=== PATIENT | female | born 1960 | race Caucasian/White ===

== ENCOUNTER 2021-02-07 12:38 | Inpatient (IN) ==
--- NOTE | 2021-02-07 13:02 | Emergency Department Note ---
SOB HPI General Chief Complaint: Shortness of Breath/Dyspnea Stated Complaint: SOB x1.5 weeks Time Seen by Provider: 02/07/21 12:42 Source: patient Mode of arrival: ambulatory Limitations: no limitations History of Present Illness HPI Narrative: Narrative: 60 yo F w/ h/o DM2 p/w SOB. She reports SOB which is constant, worsened w/ exertion, for about 1.5 weeks. Along w/ this, she has had a productive cough w/ yellowish sputum, fever, chills, malaise, body aches, and loss of sense of taste and smell. She reports that she is unvaccinated against COVID and hates wearing masks. She denies a h/o COPD but is a smoker. She has never had similar Sx. She also reports chronic anemia, and denies any blood in the stool. Related Data Home Medications Medication Instructions Recorded Confirmed insulin glargine [Lantus U-100 20 unit SUBCUT QDAY 02/07/21 02/07/21 Insulin] lisinopril 30 mg PO QDAY 02/07/21 02/07/21 metformin 1,000 mg PO BID 02/07/21 02/07/21 Allergies Allergy/AdvReac Type Severity Reaction Status Date / Time Steroids Allergy Unknown Unknown Uncoded 02/07/21 12:41 Review of Systems ROS ROS Narrative: Narrative: All systems ED: reviewed and negative except as stated. [facility] Narrative Patient History Narrative: Narrative: DM2, ongoing tobacco abuse Medical/Surgical/Family History All Active Problems (Updated 02/07/21 @ 16:43 by Norman Mohamud MD) Thrombocytopenia (Acute) T2DM (type 2 diabetes mellitus) (Acute) Essential hypertension (Acute) Hypochromic microcytic anemia (Acute) Acute dyspnea (Acute) Bilateral pneumonia (Acute) Pneumonia due to 2019 novel coronavirus (Acute) Anemia (Acute) Social History Smoking Status: Current every day smoker Exam Narrative Narrative: Narrative: General Limitations: no limitations General appearance: Present alert and in no apparent distress Head Head: Present atraumatic and normocephalic ENT ENT: Present normal oropharynx and mucous membranes moist Chest Chest: Present normal inspection and symmetric chest wall rise Respiratory Respiratory: Present normal lung sounds bilaterally; Absent respiratory distress, rales/crackles, wheezes and stridor Cardiovascular Cardiovascular: Present regular rate, normal rhythm, +S1, +S2 and other (2+ B/L radial pulses); Absent systolic murmur and diastolic murmur Adbominal Abdominal: Present soft and normal bowel sounds; Absent distention and tendernes s Rectal Rectal: Present normal inspection, normal rectal tone, heme (-) stool and other (photonics engineering technologist present as russian teacher) Extremities Extremities: Absent pedal edema Neurological Neurological: Present alert and oriented X3 Psychiatric Psychiatric: Present normal affect Skin Skin: Present warm (WNL) and dry Course Vital Signs Vital signs: Vital Signs Temperature 98.2 F 02/07/21 12:41 Pulse Rate 98 H 02/07/21 12:41 Respiratory Rate 20 02/07/21 12:41 Blood Pressure 123/95 02/07/21 12:41 Pulse Oximetry (%) 87 L 02/07/21 12:41 Temperature 98.2 F 02/07/21 12:41 Pulse Rate 94 H 02/07/21 17:01 Respiratory Rate 20 02/07/21 12:41 Blood Pressure 136/68 02/07/21 17:01 Pulse Oximetry (%) 90 02/07/21 17:01 MDM MDM Narrative Medical decision making narrative: Narrative: 60 yo F w/ h/o DM2 p/w SOB, hypoxia. DDx - COVID19, PE, PNA, sepsis, anemia, GI bleed Pt presented in NAD, w/ no increased WOB, but w/ SaO2 87% on RA. She was immediately started on 2L NC by nurse staff community health w/ good effect, SaO2 improving to the 90s. She had no accompanying hypotension, tachycardia, and no respiratory distress. I evaluated her and she was clinically stable. My strong suspicion based on Hx and PE was for COVID19. The CXR showed B/L infiltrates that were also c/w COVID19 by my own and radiologists reads. While the rapid test was negative, I felt that this was very likely a false negative and Tx'd w/ dexamethasone regardless. PE was clinically unlikely w/ no risk factors and w/ CXR showing B/L infiltrates that better explained her presentation. The lack of sudden worsening and the response to NC also fit more w/ COVID than PE. Bacterial PNA was likewise unlikely based on the infiltrate appearance, and the presence of happy hypoxia. I did not see evidence of underlying COPD w/ no wheezing present. CHF was a concern, especially high output CHF. Her Hgb was 4.9. However, the CXR showed no cardiomegaly, she had no peripheral edema, and her CXR findings were more c/w infiltrate than CHF pulmonary edema. Clinically she was not septic. Anemia was present. The etiology was unclear. She denied seeing any BRBPR or melanotic stools and hemoccult here was negative. Given the degree of anemia, this was clearly a chronic issue. I discussed R/B/A w/ pt and she was agreeable to transfusion, which I ordered. Overall her presentation was c/w COVID19 PNA and chronic anemia. She was graciously accepted for admission by the hospitalist. Lab Data Lab results reviewed: Yes I reviewed the patient's lab results. Result diagrams: 02/07/21 13:39 02/07/21 13:39 Labs: Lab Results 02/07/21 02/07/21 02/07/21 Range/Units 13:39 13:39 13:39 WBC 5.1 (4.5-11.0) K/mcL RBC 2.99 L (3.59-5.38) M/mcL Hgb 4.9 L* (11.2-15.7) g/dL Hct 18.2 L* (34.1-44.9) % MCV 60.9 L (80.0-100.0) fL MCH 16.4 L (26.0-34.0) pg MCHC 26.9 L (31.0-36.0) g/dL RDW 19.5 H (11.5-14.5) % Plt Count 108 L (140-440) K/mcL MPV 9.1 (7.4-10.4) fL Neut % (Auto) 76.5 (38.0-78.0) % Lymph % (Auto) 15.4 L (15.5-49.0) % [place] % (Auto) 7.9 (1.0-12.0) % Eos % (Auto) 0 (0.0-7.0) % Baso % (Auto) 0.2 (0.0-2.0) % Lymph # (Auto) 0.78 L (1.50-4.80) K/mcL [place] # (Auto) 0.40 (0.10-0.90) K/mcL Eos # (Auto) 0 (0.00-0.70) K/mcL Baso # (Auto) 0.01 (0.00-0.30) K/mcL Absolute Neutrophils 3.86 (1.80-8.00) K/mcL VBG Lactic Acid 1.3 (0.5-2.0) mmol/L Sodium 137 (133-145) mmol/L Potassium 3.4 (3.3-5.1) mmol/L Chloride 101 (96-108) mmol/L Carbon Dioxide 21 L (22-30) mmol/L Anion Gap 15.0 (8.0-16.0) BUN 9 (8-23) mg/dL Creatinine 0.7 (0.6-1.1) mg/dL GFR Calculation 93 Glucose 133 H (70-105) mg/dL Calcium 8.9 (8.6-10.4) mg/dL Total Bilirubin 0.4 (0.1-1.0) mg/dL AST 33 H (<32) U/L ALT 15 (<40) U/L Alkaline Phosphatase 109 (39-117) U/L Total Creatine Kinase 34 (24-170) U/L CK-MB (CK-2) 2.5 (<3.7) ng/mL Troponin T < 0.01 (<0.03) ng/mL Total Protein 6.7 (5.9-8.4) gm/dL Albumin 3.5 (3.2-5.2) gm/dL Globulin 3.2 (2.2-3.7) gm/dL Albumin/Globulin Ratio 1.1 (1.0-2.3) ED POC Tests ED POC Tests: VIELKA - SARS Antigen Negative CC TIME Critical Care Time Total Critical Care Time: 35 Attestation: The very real possibility of disability or existed without emergent intervention. Organ systems at risk included ROD HANGER, CVS, pulmonary. Interventions included supplemental O2, and blood transfusion. No procedures were required. Discharge Plan Patient/Caregiver Discharge Instructions Pt seen by BARBER SHOP MANAGER/PA only: No Clinical Impression: Acute dyspnea, Bilateral pneumonia, Pneumonia due to 2019 novel coronavirus, Anemia Patient Disposition: Xfer As Inpt ([facility]) Condition: Fair Prescriptions: No Action Lantus U-100 Insulin 100 unit/mL Solution 20 unit SUBCUT QDAY RF: 0 metformin 1,000 mg Tablet 1,000 mg PO BID RF: 0 lisinopril 30 mg Tablet 30 mg PO QDAY RF: 0
--- NOTE | 2021-02-07 13:47 | XRay Report ---
INDICATION: chest pain TECHNIQUE: AP portable upright chest x-ray COMPARISON: None FINDINGS: Lungs:There are bilateral pulmonary parenchymal infiltrates with peripheral predominance. Appearance is consistent with covid pneumonia. No focal pulmonary mass. Heart, vascular:No significant cardiomegaly. Pulmonary vascularity is normal. No pulmonary edema or pulmonary congestion Mediastinum, shorty:No mediastinal widening. No hilar mass Pleura:No pleural fluid. No pleural-based mass or calcification Skeletal:Negative. IMPRESSION: Bilateral pulmonary parenchymal infiltrates consistent with covid pneumonia Interpreted and Authenticated by: Raul Pugh 02/07/21
[2021-02-07 14:28] LABS: Basophils # (Auto) 0.01 K/mcL (0.00-0.30); Basophils % (Auto) 0.2 % (0.0-2.0); Eosinophils # (Auto) 0 K/mcL (0.00-0.70); Eosinophils % (Auto) 0 % (0.0-7.0); Hematocrit 18.2 % (34.1-44.9); Hemoglobin 4.9 g/dL (11.2-15.7); Lymphocytes # (Auto) 0.78 K/mcL (1.50-4.80); Lymphocytes % (Auto) 15.4 % (15.5-49.0); Mean Cell Volume 60.9 fL (80.0-100.0); Mean Corpuscular HGB Conc 26.9 g/dL (31.0-36.0); Mean Platelet Volume 9.1 fL (7.4-10.4); Monocytes % (Auto) 7.9 % (1.0-12.0); Neutrophils % (Auto) 76.5 % (38.0-78.0); Platelet Count 108 K/mcL (140-440); RBC 2.99 M/mcL (3.59-5.38); Red Cell Distribution Width 19.5 % (11.5-14.5); WBC 5.1 K/mcL (4.5-11.0)
[2021-02-07 14:53] LABS: ALT/SGPT 15 U/L (<40); AST/SGOT 33 U/L (<32); Albumin 3.5 gm/dL (3.2-5.2); Albumin/Globulin Ratio 1.1 (1.0-2.3); Alkaline Phosphatase 109 U/L (39-117); Bilirubin,Total 0.4 mg/dL (0.1-1.0); Blood Urea Nitrogen 9 mg/dL (8-23); Calcium 8.9 mg/dL (8.6-10.4); Carbon Dioxide 21 mmol/L (22-30); Chloride 101 mmol/L (96-108); Creatine Kinase 34 U/L (24-170); Creatine Kinase MB 2.5 ng/mL (<3.7); Globulin 3.2 gm/dL (2.2-3.7); Glomerular Filtration Rate 93; Glucose 133 mg/dL (70-105)
[2021-02-07] MEDS ORDERED: DEXAMETHASONE 10 MG/ML VIAL IV ONE (15:38)
[2021-02-07] MEDS ORDERED: 0.9 % SODIUM CHLORIDE 250 ML IV SCH (15:45)
[2021-02-07] MEDS ORDERED: hydrALAZINE 20 MG/ML VIAL IV PRN ×2 (16:38→18:07)
--- NOTE | 2021-02-07 16:38 | Internal Med History&Physical ---
HPI History of Present Illness Patient information: Note initiated : 02/07/21 at 4:37 pm Service Date, if different from initiated Date: [] Patient: Wanda Gonzalez a 60 y/o F admitted on for SOB x1.5 weeks. Chief Complaint: [CoVID pneumonia and anemia] History of present illness: Ms. Gonzalez is a 60 year old F history of essential hypertension and type 2 diabetes mellitus, presenting with 1 week history of shortness of breath, productive cough with green sputum productions, shaking chills, decreased appetite, and general body weakness. There was no prior similar episode. Patient denies any sick contact or recent travel. Patient is not vaccinated against Covid pneumonia. Over the past week, she is experiencing shortness of breath, productive cough with green sputum productions, shaking chills, decreased appetite, and general body weakness. She is also having some nausea but denies any vomiting. She denies any muscle aches. Vital signs at ED presentation significant for oxygen desaturating in the 80s on room air. Rest of the vital signs within normal limits. Labs significant for lack of leukocytosis with WBC 5.1. Hemoglobin and hematocrit 4.9 and 18.2, respectively. Platelet count 108. Serum lactic acid 1.3. Initial [place] Covid screening test negative. Chest x-ray showing bilateral pulmonary infiltrates typical for Covid pneumonia. Constitutional Constitutional: Present chills and weakness; Absent excessive sweating, fatigue and fever(s) Additional comments: decreased appetite EENT Eyes: Absent blurry vision, change in vision, loss of vision and other visual disturbances Ears: Absent decreased hearing and tinnitus Nose, mouth and throat: Absent abnormal hearing, dry mouth, headache(s), nasal congestion and sore throat Cardiovascular Cardiovascular: Absent chest pain, chest pain at rest, edema, irregular heart rhythm and palpatations Respiratory Respiratory: Present cough and excessive phlegm production; Absent dyspnea and wheezing Gastrointestinal Gastrointestinal: Present nausea; Absent abdominal pain, constipation, diarrhea and vomiting Musculoskeletal Musculoskeletal: Absent back pain, deformity, limited range of motion, muscle c ramps, muscle weakness and numbness Integumentary Integumentary: Absent lesions, rash and wounds Neurological Neurological: Absent focal weakness, headache(s) and numbness Psychiatric Psychiatric: Absent anxiety, depression and hallucinations PFSH PFSH All Active Problems (Updated 02/07/21 @ 16:43 by Norman Mohamud MD) Thrombocytopenia (Acute) T2DM (type 2 diabetes mellitus) (Acute) Essential hypertension (Acute) Hypochromic microcytic anemia (Acute) Acute dyspnea (Acute) Bilateral pneumonia (Acute) Pneumonia due to 2019 novel coronavirus (Acute) Anemia (Acute) MEDS/ALLERGIES Home Medications and Allergies Allergies Allergy/AdvReac Type Severity Reaction Status Date / Time Steroids Allergy Unknown Unknown Uncoded 02/07/21 12:41 EXAM Constitutional Vitals: Temp Pulse Resp BP Pulse Ox 36.8 C 99 H 20 138/98 92 02/07/21 12:41 02/07/21 16:21 02/07/21 12:41 02/07/21 16:21 02/07/21 16:21 General appearance: cooperative and no acute distress Head Head exam: Present atraumatic and normocephalic Eye Eye exam: Present EOMI and PERRL ENT ENT exam: Present mucous membranes moist, normal exam and normal external ear exam Additional comments: oxygen mask in place Neck Neck exam: Present normal inspection; Absent lymphadenopathy, tenderness and thyromegaly Respiratory Respiratory exam: Present rhonchi; Absent accessory muscle use, respiratory distress and wheezes Cardiovascular Cardiovascular exam: Present normal rate and rhythm; Absent JVD GI/Abdominal GI/Abdominal exam: Present normal bowel sounds and soft; Absent organomegaly and tenderness Extremities Exam Extremities exam: Present full ROM, normal capillary refill and normal inspection; Absent tenderness Neurological Exam Neurological exam: Present alert, CN II-XII intact and oriented X3; Absent motor sensory deficit Psychiatric Psychiatric exam: Present normal affect and normal mood; Absent anxious and depressed Skin Skin exam: Present dry and intact DATA Data Completed and Pending Labs: Labs from last 24 hours 02/07/21 02/07/21 02/07/21 13:39 13:39 13:39 WBC 5.1 RBC 2.99 L Hgb 4.9 L* Hct 18.2 L* MCV 60.9 L MCH 16.4 L MCHC 26.9 L RDW 19.5 H Plt Count 108 L MPV 9.1 Neut % (Auto) 76.5 Lymph % (Auto) 15.4 L [place] % (Auto) 7.9 Eos % (Auto) 0 Baso % (Auto) 0.2 Lymph # (Auto) 0.78 L [place] # (Auto) 0.40 Eos # (Auto) 0 Baso # (Auto) 0.01 Absolute Neutrophils 3.86 VBG Lactic Acid 1.3 Sodium 137 Potassium 3.4 Chloride 101 Carbon Dioxide 21 L Anion Gap 15.0 BUN 9 Creatinine 0.7 GFR Calculation 93 Glucose 133 H Calcium 8.9 Total Bilirubin 0.4 AST 33 H ALT 15 Alkaline Phosphatase 109 Total Creatine Kinase 34 CK-MB (CK-2) 2.5 Troponin T < 0.01 Total Protein 6.7 Albumin 3.5 Globulin 3.2 Albumin/Globulin Ratio 1.1 A/P Assessment and plan (1) Pneumonia due to 2019 novel coronavirus: Status: Acute (2) Hypochromic microcytic anemia: Status: Acute (3) Essential hypertension: Status: Acute (4) T2DM (type 2 diabetes mellitus): Status: Acute (5) Thrombocytopenia: Status: Acute Narrative A/P Narrative: Assessment and plan: 1. Acute respiratory failure with hypoxia suspecting Covid pneumonia: Admit to inpatient MedSurg Isolation protocol: Airborne and contact Pending Covid PCR confirmatory test Dexamethasone daily Would initiate remdesivir once Covid is confirmed by PCR Lovenox Tylenol as needed fever DuoNeb nebulizer as needed wheezing Serial lactic exit Inflammatory markers CBC with auto differential in the morning to trend WBC Proning 16 hours/day as tolerated #2 type 2 diabetes mellitus: Hemoglobin A1c Hold Metformin Continue insulin Lantus 20 units adjust Low-dose correctional scale insulin AC at bedtime Accu-Chek AC at bedtime Hypoglycemia protocol Diabetic diet #3 essential hypertension: Patient is currently normotensive Continue home regimen of oral antihypertensive 4. Hypochromic microcytic anemia with thrombocytopenia: Transfuse 3 units of PRBC Repeat CBC with auto differential in the morning to trend H&H Iron panel Vitamin B12 level Folate level GI prophylaxis: Not currently indicated DVT prophylaxis: Lovenox CODE STATUS: Full code Prognosis: Guarded Dispositions: Inpatient MedSurg telemetry Time Spent With Patient Time: Total time spent is greater than 50% in coordination of care (as documented) at patient's floor/unit and/or counseling patient: Total time spent with greater than 50% in coordination of care (as documented) at patient's floor/unit and/or counseling patient:: Greater than 35 minutes
[2021-02-07] MEDS ORDERED: DEXTROSE 31 GM ORAL.SUSP PO PRN (18:07)
[2021-02-07] MEDS ORDERED: DEXTROSE 50% 50 ML VIAL IV PRN (18:07)
[2021-02-07] MEDS ORDERED: IPRATROPIUM/ALBUTEROL 3 ML AMPUL.NEB NEB PRN (18:07)
[2021-02-07] MEDS ORDERED: ONDANSETRON 4 MG/2 ML VIAL IV PRN (18:07)
[2021-02-07] MEDS ORDERED: traZODone HCL 50 MG TABLET PO PRN (18:07)
[2021-02-07] MEDS: 0.9 % SODIUM CHLORIDE 10 ML SYRINGE IV SCH (20:06)
[2021-02-07] MEDS: DOCUSATE SODIUM 100 MG CAPSULE PO SCH (20:06)
[2021-02-07] MEDS: SENNOSIDES 1 TABLET PO SCH (20:06)
[2021-02-07] MEDS: INSULIN LISPRO 1 UNIT/0.01 ML UNIT SQ SCH ×2 (20:07→22:28)
[2021-02-07 21:10] LABS: Ferritin 56.7 ng/mL (30.0-400.0)
[2021-02-07 22:14] LABS: INR 1.1 (0.9-1.1); Prothrombin Time 14.5 sec (11.9-14.5)
[2021-02-07 23:31] LABS: Iron 10 ug/dL (37-145); Lactate Dehydrogenase 302 U/L (135-225); TIBC Calculation 319 ug/dl (228-428); Transferrin % Saturation 3 % (15-50)
[2021-02-07 23:51] LABS: Estimated Average Glucose(eAG) 151 mg/dL; Hemoglobin A1C 6.9 % Hgb (4.0-6.0)
[2021-02-08] MEDS: 0.9 % SODIUM CHLORIDE 10 ML SYRINGE IV SCH ×3 (02:55→22:09)
[2021-02-08 07:55] LABS: ALT/SGPT 16 U/L (<40); AST/SGOT 29 U/L (<32); Albumin 3.4 gm/dL (3.2-5.2); Alkaline Phosphatase 103 U/L (39-117); Bilirubin,Total 0.5 mg/dL (0.1-1.0); Blood Urea Nitrogen 9 mg/dL (8-23); Carbon Dioxide 21 mmol/L (22-30); Chloride 102 mmol/L (96-108); Globulin 3.3 gm/dL (2.2-3.7); Glomerular Filtration Rate 93; Glucose 173 mg/dL (70-105)
[2021-02-08] MEDS: ENOXAPARIN 40 MG/0.4 ML SYRINGE SQ SCH (08:21)
[2021-02-08] MEDS: DOCUSATE SODIUM 100 MG CAPSULE PO SCH ×3 (08:22→22:09)
[2021-02-08] MEDS: INSULIN LISPRO 1 UNIT/0.01 ML UNIT SQ SCH ×4 (08:22→22:08)
[2021-02-08] MEDS: DEXAMETHASONE 4 MG TABLET PO SCH (08:22)
[2021-02-08] MEDS: LISINOPRIL 10 MG TABLET PO SCH (08:22)
[2021-02-08] MEDS: INSULIN GLARGINE, HUMAN 1 UNIT/0.01 ML SQ SCH (08:23)
[2021-02-08] MEDS ORDERED: INSULIN GLARGINE, HUMAN 1 UNIT/0.01 ML SQ SCH (09:00)
[2021-02-08] MEDS ORDERED: LISINOPRIL 10 MG TABLET PO SCH (09:00)
[2021-02-08] MEDS: guaiFENesin/DEXTROMETHORPHAN ORAL SOL PO PRN ×2 (09:33→22:09)
[2021-02-08 10:23] LABS: Basophils # (Auto) 0.01 K/mcL (0.00-0.30); Basophils % (Auto) 0.3 % (0.0-2.0); Eosinophils # (Auto) 0 K/mcL (0.00-0.70); Eosinophils % (Auto) 0 % (0.0-7.0); Hematocrit 29.1 % (34.1-44.9); Lymphocytes # (Auto) 0.72 K/mcL (1.50-4.80); Lymphocytes % (Auto) 24.7 % (15.5-49.0); Mean Cell Volume 69.3 fL (80.0-100.0); Mean Corpuscular HGB Conc 30.9 g/dL (31.0-36.0); Mean Platelet Volume 9.3 fL (7.4-10.4); Monocytes # (Auto) 0.34 K/mcL (0.10-0.90); Monocytes % (Auto) 11.6 % (1.0-12.0); Neutrophils % (Auto) 63.4 % (38.0-78.0); Platelet Count 108 K/mcL (140-440); Red Cell Distribution Width 27.6 % (11.5-14.5); WBC 2.9 K/mcL (4.5-11.0)
--- NOTE | 2021-02-08 11:55 | Internal Med Progress Note ---
SUBJECTIVE Subjective Patient information: Note initiated : 02/08/21 at 11:52 am Service Date, if different from initiated Date: [] Patient: Wanda Gonzalez 60 y/o F admitted on 02/07/21 for SOB x1.5 weeks. Chief Complaint: [CoVID pneumonia vs atypical pneumonia] Interval history: History of present illness: Ms. Gonzalez is a 60 year old F history of essential hypertension and type 2 diabetes mellitus, presenting with 1 week history of shortness of breath, productive cough with green sputum productions, shaking chills, decreased appetite, and general body weakness. There was no prior similar episode. Patient denies any sick contact or recent travel. Patient is not vaccinated against Covid pneumonia. Over the past week, she is experiencing shortness of breath, productive cough with green sputum productions, shaking chills, decreased appetite, and general body weakness. She is also having some nausea but denies any vomiting. She denies any muscle aches. Vital signs at ED presentation significant for oxygen desaturating in the 80s on room air. Rest of the vital signs within normal limits. Labs significant for lack of leukocytosis with WBC 5.1. Hemoglobin and hematocrit 4.9 and 18.2, respectively. Platelet count 108. Serum lactic acid 1.3. Initial [place] Covid screening test negative. Chest x-ray showing bilateral pulmonary infiltrates typical for Covid pneumonia. 02/08: [place] negative. Aeries negative. [place] pending. On 3L/min oxygen. Afebrile overnight. WBC 2.9. s/p 3 unit pRBC transfusion. Hemoglobin 4.9-->9.0. Improving SOB. Productive cough with yellow sputum. Denies chest pain. c/o chills, denies fever or sweating. c/o general body weakness. Constitutional Vitals: Vital Signs Temp Pulse Resp BP Pulse Ox 36.6 C 79 16 121/74 95 02/08/21 11:39 02/08/21 11:39 02/08/21 11:39 02/08/21 11:39 02/08/21 11:39 Period Temp Pulse Resp BP Sys/Garcia Pulse Ox Last 24 Hr 36.3 C-37.1 C 71-99 14-20 108-154/52-109 87-100 Intake and Output 02/07/21 02/08/21 02/08/21 21:59 05:59 13:59 Intake Total 325 Output Total 200 500 Balance 325 -200 -500 Weight 70.76 kg Intake & Output: Intake & Output 02/07/21 02/08/21 02/08/21 21:59 05:59 13:59 Intake Total 325 Output Total 200 500 Balance 325 -200 -500 Weight 70.76 kg Intake: Blood Product 325 Output: Void Amount 200 500 Other: Urine Appearance Clear Urine Color Bright Yellow Dark Yellow General appearance: cooperative and no acute distress Head Head exam: Present atraumatic and normocephalic Eye Eye exam: Present EOMI and PERRL ENT ENT exam: Present mucous membranes moist, normal exam and normal external ear exam Additional comments: nasal cannula in place Neck Neck exam: Present normal inspection; Absent lymphadenopathy, tenderness and thyromegaly Respiratory Respiratory exam: Present rhonchi; Absent accessory muscle use, respiratory di stress and wheezes Cardiovascular Cardiovascular exam: Present normal rate and rhythm; Absent JVD GI/Abdominal GI/Abdominal exam: Present normal bowel sounds and soft; Absent organomegaly and tenderness Extremities Exam Extremities exam: Present full ROM, normal capillary refill and normal inspection; Absent tenderness Neurological Exam Neurological exam: Present alert, CN II-XII intact and oriented X3; Absent motor sensory deficit Psychiatric Psychiatric exam: Present normal affect and normal mood; Absent anxious and depressed Skin Skin exam: Present dry and intact OBJ DATA Labs CBC & Chem 7: 02/08/21 05:51 02/08/21 05:50 Labs: Abnormal Lab Results 02/08/21 02/08/21 02/07/21 05:51 05:50 21:16 WBC 2.9 L RBC Hgb 9.0 L Hct 29.1 L MCV 69.3 L MCH 21.4 L MCHC 30.9 L RDW 27.6 H Plt Count 108 L Lymph % (Auto) Lymph # (Auto) 0.72 L Fibrinogen 659 H D-Dimer 0.54 H Carbon Dioxide 21 L Glucose 173 H Hemoglobin A1c Iron Transferrin % Sat AST Lactate Dehydrogenase C-Reactive Protein Procalcitonin 02/07/21 02/07/21 02/07/21 13:39 13:39 13:39 WBC RBC Hgb Hct MCV MCH MCHC RDW Plt Count Lymph % (Auto) Lymph # (Auto) Fibrinogen D-Dimer Carbon Dioxide 21 L Glucose 133 H Hemoglobin A1c 6.9 H Iron 10 L Transferrin % Sat 3 L AST 33 H Lactate Dehydrogenase 302 H C-Reactive Protein 10.60 H Procalcitonin 0.27 H 02/07/21 13:39 WBC RBC 2.99 L Hgb 4.9 L* Hct 18.2 L* MCV 60.9 L MCH 16.4 L MCHC 26.9 L RDW 19.5 H Plt Count 108 L Lymph % (Auto) 15.4 L Lymph # (Auto) 0.78 L Fibrinogen D-Dimer Carbon Dioxide Glucose Hemoglobin A1c Iron Transferrin % Sat AST Lactate Dehydrogenase C-Reactive Protein Procalcitonin Meds: Medications Acetaminophen (Acetaminophen 325 Mg Tablet) 650 mg PO Q6HP PRN; Protocol PRN Reason: Per Pain Protocol/Fever > 101 Albuterol/Ipratropium (Ipratropium/Albuterol 3 Ml Ampul.Neb) 3 ml NEB Q4HRT PRN PRN Reason: Wheezing Dexamethasone (Dexamethasone 4 Mg Tablet) 6 mg PO DAILY [facility] Last Admin: 02/08/21 08:22 Dose: 6 mg Documented by: Dextrose (Dextrose 50% 50 Ml Vial) 0 ml IV UD PRN PRN Reason: Hypoglycemia Diagnostic Test (Pha) (Accu-Chek 1 Each Strip) 1 each FS ACHS [facility] Last Admin: 02/08/21 11:23 Dose: 1 each Documented by: Docusate Sodium (Docusate Sodium 100 Mg Capsule) 100 mg PO BID [facility] Last Admin: 02/08/21 08:30 Dose: Not Given Documented by: Enoxaparin Sodium (Enoxaparin 40 Mg/0.4 Ml Syringe) 40 mg SQ DAILY [facility] Last Admin: 02/08/21 08:21 Dose: 40 mg Documented by: Glucose (Dextrose 31 Gm Oral.Susp) 15 gm PO PRN PRN PRN Reason: Hypoglycemia Guaifenesin (Guaifenesin/Dextromethorphan Oral Evelyne) 10 ml PO Q4HP PRN PRN Reason: Cough Last Admin: 02/08/21 09:33 Dose: 10 ml Documented by: Hydralazine HCl (Hydralazine 20 Mg/Ml Vial) 10 mg IV Q4-6HP PRN PRN Reason: Hypertension Insulin Glargine (Insulin Glargine, Human 1 Unit/0.01 Ml) 20 unit SQ QDAY [facility] Last Admin: 02/08/21 08:23 Dose: 20 units Documented by: Insulin Human Lispro (Insulin Lispro 1 Unit/0.01 Ml Unit) 0 unit SQ ACHS [facility]; Protocol Last Admin: 02/08/21 11:29 Dose: 4 units Documented by: Lisinopril (Lisinopril 10 Mg Tablet) 30 mg PO DAILY [facility] Last Admin: 02/08/21 08:22 Dose: 30 mg Documented by: Ondansetron HCl (Ondansetron 4 Mg/2 Ml Vial) 4 mg IV Q6HP PRN PRN Reason: Nausea And Vomiting Senna (Sennosides 1 Tablet) 2 tab PO HS [facility] Last Admin: 02/07/21 20:06 Dose: Not Given Documented by: Sodium Chloride (0.9 % Sodium Chloride 10 Ml Syringe) 10 ml IV Q8 [facility] Last Admin: 02/08/21 02:55 Dose: 10 ml Documented by: Trazodone HCl (Trazodone Hcl 50 Mg Tablet) 25 mg PO HSP PRN PRN Reason: Insomnia A/P Assessment and plan (1) Pneumonia due to 2019 novel coronavirus: Status: Acute (2) Hypochromic microcytic anemia: Status: Acute (3) Essential hypertension: Status: Acute (4) T2DM (type 2 diabetes mellitus): Status: Acute (5) Thrombocytopenia: Status: Acute Narrative A/P Narrative: Assessment and plan: 1. Acute respiratory failure with hypoxia suspecting Covid pneumonia: Stays in inpatient MedSurg Isolation protocol: Airborne and contact [place] negative Aeries negative [place] pending If [place] positive, will start remdesivir If [place] negative, will treat as atypical pneumonia with Rocephin and Zithromax Dexamethasone daily Lovenox Tylenol as needed fever DuoNeb nebulizer as needed wheezing Serial lactic acid Inflammatory markers CBC with auto differential in the morning to trend WBC Proning 16 hours/day as tolerated #2 type 2 diabetes mellitus: Hemoglobin A1c Hold Metformin Continue insulin Lantus 20 units adjust Low-dose correctional scale insulin AC at bedtime Accu-Chek AC at bedtime Hypoglycemia protocol Diabetic diet #3 essential hypertension: Patient is currently normotensive Continue home regimen of oral antihypertensive 4. Hypochromic microcytic anemia with thrombocytopenia: Transfuse 3 units of PRBC Repeat CBC with auto differential in the morning to trend H&H Iron panel-->suggestive of iron deficiency. Will start oral iron supplement Vitamin B12 level within normal limits Folate level within normal limits GI prophylaxis: Not currently indicated DVT prophylaxis: Lovenox CODE STATUS: Full code Prognosis: Guarded Dispositions: Inpatient MedSurg telemetry Time Spent With Patient Time: Total time spent is greater than 50% in coordination of care (as docu mented) at patient's floor/unit and/or counseling patient: Total time spent with greater than 50% in coordination of care (as documented) at patient's floor/unit and/or counseling patient:: Greater than 35 minutes QUALITY VTE Deep Vein Thrombosis/Pulmonary Embolism Present on Admission: No
[2021-02-08] MEDS ORDERED: REMDESIVIR 200 MG in 0.9 % SODIUM CHLORIDE 250 ML IV ONE (13:30)
[2021-02-08] MEDS: ACETAMINOPHEN 325 MG TABLET PO PRN ×2 (14:05→22:07)
[2021-02-08] MEDS: FERROUS SULFATE 325 MG TABLET PO SCH (17:16)
--- NOTE | 2021-02-08 18:34 | EKG ---
[facility] Test Date: 2021-02-07 Pat Name: eDe Gonzalez Department: ED Room: Gender: Female Pool Installer: [facility] : 1960 Requested By: Harlan Browning Order Number: [id number] Reading MD: Robin Paul Measurements Intervals [place] Rate: 95 P: 45 NE: 152 QRS: 39 QRSD: 100 T: 52 QT: 374 QTc: 470 Interpretive Statements Sinus rhythm Minimal ST depression, anterolateral leads Electronically Signed On 02-08-2021 18:34:21 PST by Robin Paul /store/[email or web address]/[id number]
[2021-02-08] MEDS: SENNOSIDES 1 TABLET PO SCH (22:09)
[2021-02-09] MEDS: FERROUS SULFATE 325 MG TABLET PO SCH ×2 (07:11→16:54)
[2021-02-09 07:12] LABS: Basophils # (Auto) 0.01 K/mcL (0.00-0.30); Basophils % (Auto) 0.1 % (0.0-2.0); Eosinophils # (Auto) 0 K/mcL (0.00-0.70); Eosinophils % (Auto) 0 % (0.0-7.0); Hematocrit 27.7 % (34.1-44.9); Hemoglobin 8.5 g/dL (11.2-15.7); Lymphocytes # (Auto) 1.08 K/mcL (1.50-4.80); Lymphocytes % (Auto) 12.5 % (15.5-49.0); Mean Cell Volume 68.7 fL (80.0-100.0); Mean Corpuscular HGB Conc 30.7 g/dL (31.0-36.0); Monocytes # (Auto) 0.46 K/mcL (0.10-0.90); Monocytes % (Auto) 5.3 % (1.0-12.0); Neutrophils % (Auto) 82.1 % (38.0-78.0); Platelet Count 117 K/mcL (140-440); RBC 4.03 M/mcL (3.59-5.38); Red Cell Distribution Width 27.4 % (11.5-14.5); WBC 8.7 K/mcL (4.5-11.0)
[2021-02-09 07:14] LABS: ALT/SGPT 40 U/L (<40); AST/SGOT 68 U/L (<32); Albumin 3.3 gm/dL (3.2-5.2); Alkaline Phosphatase 101 U/L (39-117); Bilirubin,Total 0.4 mg/dL (0.1-1.0); Blood Urea Nitrogen 18 mg/dL (8-23); Calcium 9.2 mg/dL (8.6-10.4); Carbon Dioxide 21 mmol/L (22-30); Chloride 103 mmol/L (96-108); Globulin 3.2 gm/dL (2.2-3.7); Glomerular Filtration Rate 93; Glucose 145 mg/dL (70-105)
[2021-02-09] MEDS: INSULIN GLARGINE, HUMAN 1 UNIT/0.01 ML SQ SCH (08:27)
[2021-02-09] MEDS: ACETAMINOPHEN 325 MG TABLET PO PRN ×2 (08:28→21:03)
[2021-02-09] MEDS: INSULIN LISPRO 1 UNIT/0.01 ML UNIT SQ SCH ×4 (08:28→21:04)
[2021-02-09] MEDS: LISINOPRIL 10 MG TABLET PO SCH (08:29)
[2021-02-09] MEDS: DEXAMETHASONE 4 MG TABLET PO SCH (08:29)
[2021-02-09] MEDS: guaiFENesin/DEXTROMETHORPHAN ORAL SOL PO PRN ×2 (08:30→21:05)
[2021-02-09] MEDS: ENOXAPARIN 40 MG/0.4 ML SYRINGE SQ SCH (08:31)
[2021-02-09] MEDS: DOCUSATE SODIUM 100 MG CAPSULE PO SCH ×2 (08:36→21:04)
[2021-02-09] MEDS: 0.9 % SODIUM CHLORIDE 10 ML SYRINGE IV SCH ×3 (09:02→21:04)
[2021-02-09] MEDS: REMDESIVIR 100 MG in 0.9 % SODIUM CHLORIDE 250 ML IV SCH (09:02)
[2021-02-09] MEDS ORDERED: DEXTROSE 50% 50 ML VIAL IV PRN (11:29)
[2021-02-09] MEDS ORDERED: DEXTROSE 31 GM ORAL.SUSP PO PRN (11:29)
--- NOTE | 2021-02-09 11:31 | Internal Med Progress Note ---
SUBJECTIVE Subjective Patient information: Note initiated : 02/09/21 at 11:30 am Service Date, if different from initiated Date: [] Patient: Wanda Gonzalez 60 y/o F admitted on 02/07/21 for SOB x1.5 weeks. Chief Complaint: [] Interval history: History of present illness: Ms. Gonzalez is a 60 year old F history of essential hypertension and type 2 diabetes mellitus, presenting with 1 week history of shortness of breath, productive cough with green sputum productions, shaking chills, decreased appetite, and general body weakness. There was no prior similar episode. Patient denies any sick contact or recent travel. Patient is not vaccinated against Covid pneumonia. Over the past week, she is experiencing shortness of breath, productive cough with green sputum productions, shaking chills, decreased appetite, and general body weakness. She is also having some nausea but denies any vomiting. She denies any muscle aches. Vital signs at ED presentation significant for oxygen desaturating in the 80s on room air. Rest of the vital signs within normal limits. Labs significant for lack of leukocytosis with WBC 5.1. Hemoglobin and hematocrit 4.9 and 18.2, respectively. Platelet count 108. Serum lactic acid 1.3. Initial Carolin Covid screening test negative. Chest x-ray showing bilateral pulmonary infiltrates typical for Covid pneumonia. 02/08: Carolin negative. Aeries negative. Mackay pending. On 3L/min oxygen. Afebrile overnight. WBC 2.9. s/p 3 unit pRBC transfusion. Hemoglobin 4.9-->9.0. Improving SOB. Productive cough with yellow sputum. Denies chest pain. c/o chills, denies fever or sweating. c/o general body weakness. 02/09: Mackay positive. Currently on 4L/min oxygen. Started on Remdesivir on 02/08. Afebrile overnight. H/H stable. Improving SOB. Productive cough with green sputum. Denies chest pain. c/o general body weakness. Denies fever, chills, or sweating. Constitutional Vitals: Vital Signs Temp Pulse Resp BP Pulse Ox 35.9 C L 90 20 139/46 94 02/09/21 11:20 02/09/21 11:20 02/09/21 11:20 02/09/21 11:20 02/09/21 11:20 Period Temp Pulse Resp BP Sys/Garcia Pulse Ox Last 24 Hr 35.9 C-36.9 C 67-90 16-20 92-145/41-80 91-96 Intake and Output 02/08/21 02/09/21 02/09/21 21:59 05:59 13:59 Intake Total 730 680 250 Output Total 100 Balance 630 680 250 Weight 72.121 kg Intake & Output: Intake & Output 02/08/21 02/09/21 02/09/21 21:59 05:59 13:59 Intake Total 730 680 250 Output Total 100 Balance 630 680 250 Weight 72.121 kg Intake: IV 250 250 Veklury 100 mg In Sodium 250 250 Chloride 0.9% 250 ml @ 500 mls/ hr IV Q24H [facility] Rx#:[id number] Oral 480 680 Output: Void Amount 100 Other: Urine Appearance Clear Urine Color Dark Yellow Bright Yellow Stool Size Moderate Stool Color Brown Stool Consistency Normal for Patient # Voids 1 1 # Bowel Movements 1 General appearance: cooperative and mild distress Head Head exam: Present atraumatic and normal inspection Eye Eye exam: Present normal appearance ENT ENT exam: Present mucous membranes moist, normal exam and normal external ear exam Additional comments: Nasal cannula in place Neck Neck exam: Present normal inspection Respiratory Respiratory exam: Present normal respiratory exam and rhonchi; Absent wheezes Cardiovascular Cardiovascular exam: Present normal rate and rhythm GI/Abdominal GI/Abdominal exam: Present normal bowel sounds Back Exam Back exam: Present normal inspection Neurological Exam Neurological exam: Present alert and oriented X3 Skin Skin exam: Present intact and warm OBJ DATA Labs CBC & Chem 7: 02/09/21 05:50 02/09/21 05:50 Labs: Abnormal Lab Results 02/09/21 02/09/21 02/08/21 05:50 05:50 05:51 WBC 2.9 L RBC Hgb 8.5 L 9.0 L Hct 27.7 L 29.1 L MCV 68.7 L 69.3 L MCH 21.1 L 21.4 L MCHC 30.7 L 30.9 L RDW 27.4 H 27.6 H Plt Count 117 L 108 L Neut % (Auto) 82.1 H Lymph % (Auto) 12.5 L Lymph # (Auto) 1.08 L 0.72 L Fibrinogen D-Dimer Carbon Dioxide 21 L Glucose 145 H Hemoglobin A1c Iron Transferrin % Sat AST 68 H ALT 40 H Lactate Dehydrogenase C-Reactive Protein Procalcitonin 02/08/21 02/07/21 02/07/21 05:50 21:16 13:39 WBC RBC Hgb Hct MCV MCH MCHC RDW Plt Count Neut % (Auto) Lymph % (Auto) Lymph # (Auto) Fibrinogen 659 H D-Dimer 0.54 H Carbon Dioxide 21 L Glucose 173 H Hemoglobin A1c Iron Transferrin % Sat AST ALT Lactate Dehydrogenase C-Reactive Protein Procalcitonin 0.27 H 02/07/21 02/07/21 02/07/21 13:39 13:39 13:39 WBC RBC 2.99 L Hgb 4.9 L* Hct 18.2 L* MCV 60.9 L MCH 16.4 L MCHC 26.9 L RDW 19.5 H Plt Count 108 L Neut % (Auto) Lymph % (Auto) 15.4 L Lymph # (Auto) 0.78 L Fibrinogen D-Dimer Carbon Dioxide 21 L Glucose 133 H Hemoglobin A1c 6.9 H Iron 10 L Transferrin % Sat 3 L AST 33 H ALT Lactate Dehydrogenase 302 H C-Reactive Protein 10.60 H Procalcitonin Meds: Medications Acetaminophen (Acetaminophen 325 Mg Tablet) 650 mg PO Q6HP PRN; Protocol PRN Reason: Per Pain Protocol/Fever > 101 Last Admin: 02/09/21 08:28 Dose: 650 mg Documented by: Albuterol/Ipratropium (Ipratropium/Albuterol 3 Ml Ampul.Neb) 3 ml NEB Q4HRT PRN PRN Reason: Wheezing Dexamethasone (Dexamethasone 4 Mg Tablet) 6 mg PO DAILY [facility] Last Admin: 02/09/21 08:29 Dose: 6 mg Documented by: Dextrose (Dextrose 50% 50 Ml Vial) 0 ml IV UD PRN PRN Reason: Hypoglycemia Dextrose (Dextrose 50% 50 Ml Vial) 0 ml IV UD PRN PRN Reason: Hypoglycemia Diagnostic Test (Pha) (Accu-Chek 1 Each Strip) 1 each FS ACHS [facility] Last Admin: 02/09/21 11:17 Dose: 1 each Documented by: Diagnostic Test (Pha) (Accu-Chek 1 Each Strip) 1 each FS ACHS [facility] Docusate Sodium (Docusate Sodium 100 Mg Capsule) 100 mg PO BID [facility] Last Admin: 02/09/21 08:36 Dose: Not Given Documented by: Enoxaparin Sodium (Enoxaparin 40 Mg/0.4 Ml Syringe) 40 mg SQ DAILY [facility] Last Admin: 02/09/21 08:31 Dose: 40 mg Documented by: Ferrous Sulfate (Ferrous Sulfate 325 Mg Tablet) 325 mg PO BIDCC [facility] Last Admin: 02/09/21 07:11 Dose: 325 mg Documented by: Glucose (Dextrose 31 Gm Oral.Susp) 15 gm PO PRN PRN PRN Reason: Hypoglycemia Glucose (Dextrose 31 Gm Oral.Susp) 15 gm PO PRN PRN PRN Reason: Hypoglycemia Guaifenesin (Guaifenesin/Dextromethorphan Oral Evelyne) 10 ml PO Q4HP PRN PRN Reason: Cough Last Admin: 02/09/21 08:30 Dose: 10 ml Documented by: Hydralazine HCl (Hydralazine 20 Mg/Ml Vial) 10 mg IV Q4-6HP PRN PRN Reason: Hypertension REMDESIVIR 100 mg/ Sodium (Chloride) 250 mls @ 500 mls/hr IV Q24H [facility] Stop: 02/12/21 09:01 Last Infusion: 02/09/21 10:11 Dose: Infused Documented by: Insulin Glargine (Insulin Glargine, Human 1 Unit/0.01 Ml) 20 unit SQ QDAY [facility] Last Admin: 02/09/21 08:27 Dose: 20 units Documented by: Insulin Human Lispro (Insulin Lispro 1 Unit/0.01 Ml Unit) 0 unit SQ ACHS [facility]; Protocol Lisinopril (Lisinopril 10 Mg Tablet) 30 mg PO DAILY [facility] Last Admin: 02/09/21 08:29 Dose: 30 mg Documented by: Ondansetron HCl (Ondansetron 4 Mg/2 Ml Vial) 4 mg IV Q6HP PRN PRN Reason: Nausea And Vomiting Senna (Sennosides 1 Tablet) 2 tab PO HS [facility] Last Admin: 02/08/21 22:09 Dose: Not Given Documented by: Sodium Chloride (0.9 % Sodium Chloride 10 Ml Syringe) 10 ml IV Q8 [facility] Last Admin: 02/09/21 09:02 Dose: 10 ml Documented by: Trazodone HCl (Trazodone Hcl 50 Mg Tablet) 25 mg PO HSP PRN PRN Reason: Insomnia A/P Assessment and plan (1) Pneumonia due to 2019 novel coronavirus: Status: Acute (2) Hypochromic microcytic anemia: Status: Acute (3) Essential hypertension: Status: Acute (4) T2DM (type 2 diabetes mellitus): Status: Acute (5) Thrombocytopenia: Status: Acute Narrative A/P Narrative: Assessment and plan: 1. Acute respiratory failure with hypoxia secondary to CoVID pneumonia: Stays in inpatient MedSurg Isolation protocol: Airborne and contact Carolin negative Aeries negative Mackay positive Remdesivir started on 02/08 Dexamethasone daily Lovenox Tylenol as needed fever DuoNeb nebulizer as needed wheezing Serial lactic acid Inflammatory markers CBC with auto differential in the morning to trend WBC Proning 16 hours/day as tolerated #2 type 2 diabetes mellitus: Hemoglobin A1c Hold Metformin Continue insulin Lantus 20 units adjust Medium-dose correctional scale insulin AC at bedtime for better glycemic coverage Accu-Chek AC at bedtime Hypoglycemia protocol Diabetic diet #3 essential hypertension: Patient is currently normotensive Continue home regimen of oral antihypertensive 4. Hypochromic microcytic anemia with thrombocytopenia: s/p transfusion of 3 units of pRBC on date of admission Repeat CBC with auto differential in the morning to trend H&H Iron panel-->suggestive of iron deficiency. Will start oral iron supplement Vitamin B12 level within normal limits Folate level within normal limits GI prophylaxis: Not currently indicated DVT prophylaxis: Lovenox CODE STATUS: Full code Prognosis: Guarded Dispositions: Inpatient MedSur telemetry Time Spent With Patient Time: Total time spent is greater than 50% in coordination of care (as documented) at patient's floor/unit and/or counseling patient: Total time spent with greater than 50% in coordination of care (as documented) at patient's floor/unit and/or counseling patient:: Greater than 35 minutes QUALITY VTE Deep Vein Thrombosis/Pulmonary Embolism Present on Admission: No
[2021-02-09] MEDS: SENNOSIDES 1 TABLET PO SCH (21:04)
[2021-02-10] MEDS: guaiFENesin/DEXTROMETHORPHAN ORAL SOL PO PRN ×4 (03:11→23:13)
[2021-02-10] MEDS: 0.9 % SODIUM CHLORIDE 10 ML SYRINGE IV SCH ×3 (04:04→21:03)
[2021-02-10 07:20] LABS: Basophils # (Auto) 0.02 K/mcL (0.00-0.30); Basophils % (Auto) 0.2 % (0.0-2.0); Eosinophils # (Auto) 0 K/mcL (0.00-0.70); Eosinophils % (Auto) 0 % (0.0-7.0); Hematocrit 29.9 % (34.1-44.9); Hemoglobin 8.9 g/dL (11.2-15.7); Lymphocytes # (Auto) 1.38 K/mcL (1.50-4.80); Lymphocytes % (Auto) 11.6 % (15.5-49.0); Mean Cell Volume 71.9 fL (80.0-100.0); Mean Corpuscular HGB Conc 29.8 g/dL (31.0-36.0); Monocytes # (Auto) 0.74 K/mcL (0.10-0.90); Monocytes % (Auto) 6.2 % (1.0-12.0); Platelet Count 137 K/mcL (140-440); RBC 4.16 M/mcL (3.59-5.38); Red Cell Distribution Width 28.1 % (11.5-14.5); WBC 11.9 K/mcL (4.5-11.0)
[2021-02-10 07:28] LABS: ALT/SGPT 42 U/L (<40); AST/SGOT 51 U/L (<32); Albumin 3.3 gm/dL (3.2-5.2); Albumin/Globulin Ratio 1.1 (1.0-2.3); Alkaline Phosphatase 102 U/L (39-117); Bilirubin,Total 0.4 mg/dL (0.1-1.0); Blood Urea Nitrogen 24 mg/dL (8-23); Calcium 9.2 mg/dL (8.6-10.4); Carbon Dioxide 20 mmol/L (22-30); Chloride 99 mmol/L (96-108); Glomerular Filtration Rate 93; Glucose 108 mg/dL (70-105)
[2021-02-10] MEDS: INSULIN LISPRO 1 UNIT/0.01 ML UNIT SQ SCH ×4 (07:45→21:01)
[2021-02-10] MEDS: INSULIN GLARGINE, HUMAN 1 UNIT/0.01 ML SQ SCH (08:48)
[2021-02-10] MEDS: ENOXAPARIN 40 MG/0.4 ML SYRINGE SQ SCH (08:48)
[2021-02-10] MEDS: DEXAMETHASONE 4 MG TABLET PO SCH (08:50)
[2021-02-10] MEDS: LISINOPRIL 10 MG TABLET PO SCH (08:50)
[2021-02-10] MEDS: DOCUSATE SODIUM 100 MG CAPSULE PO SCH ×3 (08:51→21:03)
[2021-02-10] MEDS: ACETAMINOPHEN 325 MG TABLET PO PRN ×2 (08:56→21:01)
[2021-02-10] MEDS: FERROUS SULFATE 325 MG TABLET PO SCH ×2 (09:44→17:26)
[2021-02-10] MEDS: REMDESIVIR 100 MG in 0.9 % SODIUM CHLORIDE 250 ML IV SCH (09:44)
--- NOTE | 2021-02-10 11:50 | Internal Med Progress Note ---
SUBJECTIVE Subjective Patient information: Note initiated : 02/10/21 at 11:49 am Service Date, if different from initiated Date: [] Patient: Wanda Gonzalez 60 y/o F admitted on 02/07/21 for SOB x1.5 weeks. Chief Complaint: [] Interval history: History of present illness: Ms. Gonzalez is a 60 year old F history of essential hypertension and type 2 diabetes mellitus, presenting with 1 week history of shortness of breath, productive cough with green sputum productions, shaking chills, decreased appetite, and general body weakness. There was no prior similar episode. Patient denies any sick contact or recent travel. Patient is not vaccinated against Covid pneumonia. Over the past week, she is experiencing shortness of breath, productive cough with green sputum productions, shaking chills, decreased appetite, and general body weakness. She is also having some nausea but denies any vomiting. She denies any muscle aches. Vital signs at ED presentation significant for oxygen desaturating in the 80s on room air. Rest of the vital signs within normal limits. Labs significant for lack of leukocytosis with WBC 5.1. Hemoglobin and hematocrit 4.9 and 18.2, respectively. Platelet count 108. Serum lactic acid 1.3. Initial Carolin Covid screening test negative. Chest x-ray showing bilateral pulmonary infiltrates typical for Covid pneumonia. 02/08: Carolin negative. Aeries negative. Sabina pending. On 3L/min oxygen. Afebrile overnight. WBC 2.9. s/p 3 unit pRBC transfusion. Hemoglobin 4.9-->9.0. Improving SOB. Productive cough with yellow sputum. Denies chest pain. c/o chills, denies fever or sweating. c/o general body weakness. 02/09: Sabina positive. Currently on 4L/min oxygen. Started on Remdesivir on 02/08. Afebrile overnight. H/H stable. Improving SOB. Productive cough with green sputum. Denies chest pain. c/o general body weakness. Denies fever, chills, or sweating. 02/10: Afebrile overnight. Currently on 4L/min oxygen. H/H stable. Improving SOB. Productive cough with green sputum. Denies chest pain. Denies general body weakness. Denies fever, chills, or sweating. c/o agitation. Constitutional Vitals: Vital Signs Temp Pulse Resp BP Pulse Ox 36.3 C 92 H 20 129/85 95 02/10/21 07:58 02/10/21 05:49 02/10/21 07:58 02/10/21 07:58 02/10/21 07:58 Period Temp Pulse Resp BP Sys/Garcia Pulse Ox Last 24 Hr 36.1 C-36.6 C 56-92 18-22 126-140/54-85 90-96 Intake and Output 02/09/21 02/10/21 02/10/21 21:59 05:59 13:59 Intake Total 480 250 Output Total 600 Balance -120 250 Weight 73.482 kg Intake & Output: Intake & Output 02/09/21 02/10/21 02/10/21 21:59 05:59 13:59 Intake Total 480 250 Output Total 600 Balance -120 250 Weight 73.482 kg Intake: IV 250 Veklury 100 mg In Sodium 250 Chloride 0.9% 250 ml @ 500 mls/ hr IV Q24H [facility] Rx#:[id number] Oral 480 Output: Void Amount 600 Other: Urine Appearance Clear Urine Color Bright Yellow Urine Odor Strong # Voids 1 1 General appearance: cooperative and no acute distress Head Head exam: Present atraumatic and normal inspection Eye Eye exam: Present normal appearance ENT ENT exam: Present mucous membranes moist, normal exam and normal external ear exam Additional comments: Nasal cannula in place Neck Neck exam: Present normal inspection Respiratory Respiratory exam: Present normal respiratory exam and rhonchi; Absent wheezes Cardiovascular Cardiovascular exam: Present normal rate and rhythm GI/Abdominal GI/Abdominal exam: Present normal bowel sounds Back Exam Back exam: Present normal inspection Neurological Exam Neurological exam: Present alert and oriented X3 Skin Skin exam: Present intact and warm OBJ DATA Labs CBC & Chem 7: 02/10/21 05:40 02/10/21 05:40 Labs: Abnormal Lab Results 02/10/21 02/10/21 02/09/21 05:40 05:40 05:50 WBC 11.9 H RBC Hgb 8.9 L Hct 29.9 L MCV 71.9 L MCH 21.4 L MCHC 29.8 L RDW 28.1 H Plt Count 137 L Neut % (Auto) 82.0 H Lymph % (Auto) 11.6 L Lymph # (Auto) 1.38 L Absolute Neutrophils 9.74 H Fibrinogen D-Dimer Sodium 132 L Carbon Dioxide 20 L 21 L BUN 24 H Glucose 108 H 145 H Hemoglobin A1c Iron Transferrin % Sat AST 51 H 68 H ALT 42 H 40 H Lactate Dehydrogenase C-Reactive Protein Procalcitonin 02/09/21 02/08/21 02/08/21 05:50 05:51 05:50 WBC 2.9 L RBC Hgb 8.5 L 9.0 L Hct 27.7 L 29.1 L MCV 68.7 L 69.3 L MCH 21.1 L 21.4 L MCHC 30.7 L 30.9 L RDW 27.4 H 27.6 H Plt Count 117 L 108 L Neut % (Auto) 82.1 H Lymph % (Auto) 12.5 L Lymph # (Auto) 1.08 L 0.72 L Absolute Neutrophils Fibrinogen D-Dimer Sodium Carbon Dioxide 21 L BUN Glucose 173 H Hemoglobin A1c Iron Transferrin % Sat AST ALT Lactate Dehydrogenase C-Reactive Protein Procalcitonin 02/07/21 02/07/21 02/07/21 21:16 13:39 13:39 WBC RBC Hgb Hct MCV MCH MCHC RDW Plt Count Neut % (Auto) Lymph % (Auto) Lymph # (Auto) Absolute Neutrophils Fibrinogen 659 H D-Dimer 0.54 H Sodium Carbon Dioxide BUN Glucose Hemoglobin A1c 6.9 H Iron 10 L Transferrin % Sat 3 L AST ALT Lactate Dehydrogenase 302 H C-Reactive Protein 10.60 H Procalcitonin 0.27 H 02/07/21 02/07/21 13:39 13:39 WBC RBC 2.99 L Hgb 4.9 L* Hct 18.2 L* MCV 60.9 L MCH 16.4 L MCHC 26.9 L RDW 19.5 H Plt Count 108 L Neut % (Auto) Lymph % (Auto) 15.4 L Lymph # (Auto) 0.78 L Absolute Neutrophils Fibrinogen D-Dimer Sodium Carbon Dioxide 21 L BUN Glucose 133 H Hemoglobin A1c Iron Transferrin % Sat AST 33 H ALT Lactate Dehydrogenase C-Reactive Protein Procalcitonin Meds: Medications Acetaminophen (Acetaminophen 325 Mg Tablet) 650 mg PO Q6HP PRN; Protocol PRN Reason: Per Pain Protocol/Fever > 101 Last Admin: 02/10/21 08:56 Dose: 650 mg Documented by: Albuterol/Ipratropium (Ipratropium/Albuterol 3 Ml Ampul.Neb) 3 ml NEB Q4HRT PRN PRN Reason: Wheezing Dexamethasone (Dexamethasone 4 Mg Tablet) 6 mg PO DAILY [facility] Last Admin: 02/10/21 08:50 Dose: 6 mg Documented by: Dextrose (Dextrose 50% 50 Ml Vial) 0 ml IV UD PRN PRN Reason: Hypoglycemia Dextrose (Dextrose 50% 50 Ml Vial) 0 ml IV UD PRN PRN Reason: Hypoglycemia Diagnostic Test (Pha) (Accu-Chek 1 Each Strip) 1 each FS [facility] Last Admin: 02/10/21 07:42 Dose: 1 each Documented by: Docusate Sodium (Docusate Sodium 100 Mg Capsule) 100 mg PO BID [facility] Last Admin: 02/10/21 08:55 Dose: Not Given Documented by: Enoxaparin Sodium (Enoxaparin 40 Mg/0.4 Ml Syringe) 40 mg SQ DAILY [facility] Last Admin: 02/10/21 08:48 Dose: 40 mg Documented by: Ferrous Sulfate (Ferrous Sulfate 325 Mg Tablet) 325 mg PO BIDCC [facility] Last Admin: 02/10/21 09:44 Dose: 325 mg Documented by: Glucose (Dextrose 31 Gm Oral.Susp) 15 gm PO PRN PRN PRN Reason: Hypoglycemia Glucose (Dextrose 31 Gm Oral.Susp) 15 gm PO PRN PRN PRN Reason: Hypoglycemia Guaifenesin (Guaifenesin/Dextromethorphan Oral Evelyne) 10 ml PO Q4HP PRN PRN Reason: Cough Last Admin: 02/10/21 08:49 Dose: 10 ml Documented by: Hydralazine HCl (Hydralazine 20 Mg/Ml Vial) 10 mg IV Q4-6HP PRN PRN Reason: Hypertension REMDESIVIR 100 mg/ Sodium (Chloride) 250 mls @ 500 mls/hr IV Q24H [facility] Stop: 02/12/21 09:01 Last Infusion: 02/10/21 10:44 Dose: Infused Documented by: Insulin Glargine (Insulin Glargine, Human 1 Unit/0.01 Ml) 20 unit SQ QDAY [facility] Last Admin: 02/10/21 08:48 Dose: 20 units Documented by: Insulin Human Lispro (Insulin Lispro 1 Unit/0.01 Ml Unit) 0 unit SQ [facility]; Protocol Last Admin: 02/10/21 07:45 Dose: Not Given Documented by: Lisinopril (Lisinopril 10 Mg Tablet) 30 mg PO DAILY [facility] Last Admin: 02/10/21 08:50 Dose: 30 mg Documented by: Ondansetron HCl (Ondansetron 4 Mg/2 Ml Vial) 4 mg IV Q6HP PRN PRN Reason: Nausea And Vomiting Senna (Sennosides 1 Tablet) 2 tab PO HS [facility] Last Admin: 02/09/21 21:04 Dose: Not Given Documented by: Sodium Chloride (0.9 % Sodium Chloride 10 Ml Syringe) 10 ml IV Q8 [facility] Last Admin: 02/10/21 04:04 Dose: 10 ml Documented by: Trazodone HCl (Trazodone Hcl 50 Mg Tablet) 25 mg PO HSP PRN PRN Reason: Insomnia A/P Assessment and plan (1) Pneumonia due to 2019 novel coronavirus: Status: Acute (2) Hypochromic microcytic anemia: Status: Acute (3) Essential hypertension: Status: Acute (4) T2DM (type 2 diabetes mellitus): Status: Acute (5) Thrombocytopenia: Status: Acute Narrative A/P Narrative: Assessment and plan: 1. Acute respiratory failure with hypoxia secondary to CoVID pneumonia: Stays in inpatient MedSur Isolation protocol: Airborne and contact Carolin negative Aeries negative Sabina positive Remdesivir started on 02/08 Dexamethasone daily Lovenox Tylenol as needed fever DuoNeb nebulizer as needed wheezing Serial lactic acid Inflammatory markers CBC with auto differential in the morning to trend WBC Proning 16 hours/day as tolerated #2 type 2 diabetes mellitus: Hemoglobin A1c Hold Metformin Continue insulin Lantus 20 units adjust Medium-dose correctional scale insulin AC at bedtime for better glycemic coverage Accu-Chek AC at bedtime Hypoglycemia protocol Diabetic diet #3 essential hypertension: Patient is currently normotensive Continue home regimen of oral antihypertensive 4. Hypochromic microcytic anemia with thrombocytopenia: s/p transfusion of 3 units of pRBC on date of admission Repeat CBC with auto differential in the morning to trend H&H Iron panel-->suggestive of iron deficiency. Will start oral iron supplement Vitamin B12 level within normal limits Folate level within normal limits GI prophylaxis: Not currently indicated DVT prophylaxis: Lovenox CODE STATUS: Full code Prognosis: Guarded Dispositions: Inpatient MedSur telemetry Time Spent With Patient Time: Total time spent is greater than 50% in coordination of care (as documented) at patient's floor/unit and/or counseling patient: Total time spent with greater than 50% in coordination of care (as documented) at patient's floor/unit and/or counseling patient:: Greater than 35 minutes QUALITY VTE Deep Vein Thrombosis/Pulmonary Embolism Present on Admission: No
[2021-02-10] MEDS: SENNOSIDES 1 TABLET PO SCH (21:03)
[2021-02-11] MEDS: 0.9 % SODIUM CHLORIDE 10 ML SYRINGE IV SCH (06:06)
[2021-02-11 07:26] LABS: Basophils # (Auto) 0.02 K/mcL (0.00-0.30); Basophils % (Auto) 0.2 % (0.0-2.0); Eosinophils # (Auto) 0.01 K/mcL (0.00-0.70); Eosinophils % (Auto) 0.1 % (0.0-7.0); Hematocrit 29.2 % (34.1-44.9); Hemoglobin 8.9 g/dL (11.2-15.7); Lymphocytes # (Auto) 1.55 K/mcL (1.50-4.80); Lymphocytes % (Auto) 14.5 % (15.5-49.0); Mean Cell Volume 70.5 fL (80.0-100.0); Mean Corpuscular HGB Conc 30.5 g/dL (31.0-36.0); Monocytes % (Auto) 7.5 % (1.0-12.0); Neutrophils % (Auto) 77.7 % (38.0-78.0); Platelet Count 183 K/mcL (140-440); RBC 4.14 M/mcL (3.59-5.38); Red Cell Distribution Width 28.7 % (11.5-14.5); WBC 10.7 K/mcL (4.5-11.0)
[2021-02-11 07:56] LABS: ALT/SGPT 34 U/L (<40); AST/SGOT 31 U/L (<32); Albumin 2.9 gm/dL (3.2-5.2); Alkaline Phosphatase 100 U/L (39-117); Bilirubin,Total 0.4 mg/dL (0.1-1.0); Blood Urea Nitrogen 18 mg/dL (8-23); Calcium 8.9 mg/dL (8.6-10.4); Carbon Dioxide 20 mmol/L (22-30); Chloride 101 mmol/L (96-108); Glomerular Filtration Rate 93; Glucose 136 mg/dL (70-105)
[2021-02-11] MEDS: INSULIN LISPRO 1 UNIT/0.01 ML UNIT SQ SCH ×2 (09:00→12:05)
[2021-02-11] MEDS: DOCUSATE SODIUM 100 MG CAPSULE PO SCH (09:01)
[2021-02-11] MEDS: ACETAMINOPHEN 325 MG TABLET PO PRN (09:01)
[2021-02-11] MEDS: FERROUS SULFATE 325 MG TABLET PO SCH (09:01)
[2021-02-11] MEDS: LISINOPRIL 10 MG TABLET PO SCH (09:02)
[2021-02-11] MEDS: ENOXAPARIN 40 MG/0.4 ML SYRINGE SQ SCH (09:02)
[2021-02-11] MEDS: DEXAMETHASONE 4 MG TABLET PO SCH (09:06)
[2021-02-11] MEDS: REMDESIVIR 100 MG in 0.9 % SODIUM CHLORIDE 250 ML IV SCH (09:07)
[2021-02-11] MEDS: INSULIN GLARGINE, HUMAN 1 UNIT/0.01 ML SQ SCH (09:07)
--- NOTE | 2021-02-11 12:51 | Discharge Summary ---
Discharge Provider Provider Patient information: Note initiated : 02/11/21 at 12:49 pm Service Date, if different from initiated Date: [] Patient: Wanda Gonzalez 60 y/o F admitted on 02/07/21 for SOB x1.5 weeks. Chief Complaint: [CoVID pneumonia] Date of admission: 02/07/21 18:04 Discharge date: 02/11/21 Attending physician on admission: Norman Mohamud Consults: 02/07/21 Consult to Physician [CONS] Stat Comment: Consulting Provider: Norman Mohamud Reason For Exam: Physician to Consult Attending physician on discharge: Norman Harden Pui Discharge Meds Discharge Medications Home Medications insulin glargine 100 unit/mL subcutaneous solution (Lantus U-100 Insulin) 20 unit SUBCUT QDAY 02/07/21 [History Confirmed 02/07/21 Last Taken Unknown] lisinopril 30 mg tablet 30 mg PO QDAY 02/07/21 [History Confirmed 02/07/21 Last Taken Unknown] metformin 1,000 mg tablet 1,000 mg PO BID 02/07/21 [History Confirmed 02/07/21 Last Taken Unknown] dextromethorphan-guaifenesin 10 mg-100 mg/5 mL oral liquid (Robafen DM Cough) 10 ml PO Q4HP PRN #500 ml 02/11/21 [Rx Last Taken Unknown] ferrous sulfate 325 mg (65 mg iron) tablet 325 mg PO BIDCC #30 tab 02/11/21 [Rx Last Taken Unknown] COURSE Hospital Course Hospital course: Patient was admitted on February 07, 2021 for acute onset respiratory failure with hypoxia. She was tested positive for Covid pneumonia. She was started on Covid specific treatment including supplemental oxygen, remdesivir, dexamethasone, and Lovenox as anticoagulations. She was also being diagnosed with anemia with unknown chronicity. Lab test suggest iron deficiency was the cause of her anemia. Blood transfusion was given and serial hemoglobin and hematocrit were checked and her H&H level remained stable after transfusions. She was started on iron oral supplement. She continued to improved clinically and by day 5 hospitalizations, her oxygen requirements was from 2 to 4 L/min at rest and while ambulates, has been afebrile for more than 24 hours, and the decision was thus made to discharge patient home with instruction to follow-up with her primary care physician in 1 to 2 weeks. All questions were answered prior to patient being physically physically discharged. Prescriptions of home oxygen was written. Discharge diagnosis: Covid pneumonia Reason for admission: Acute respiratory failure with hypoxia Time Spent with Patient Time attestation: Total time spent providing and/or coordinating discharge services: EXAM Constitutional Vitals: Temp Pulse Resp BP Pulse Ox 37.0 C 75 19 139/78 93 02/11/21 12:00 02/11/21 12:00 02/11/21 12:00 02/11/21 07:22 02/11/21 12:00 General appearance: cooperative and no acute distress Head Head exam: Present atraumatic and normocephalic Eye Eye exam: Present EOMI and PERRL ENT ENT exam: Present mucous membranes moist, normal exam and normal external ear exam Additional comments: nasal cannula in place Neck Neck exam: Present normal inspection; Absent lymphadenopathy, tenderness or thyromegaly Respiratory Respiratory exam: Present rhonchi; Absent accessory muscle use, respiratory distress or wheezes Cardiovascular Cardiovascular exam: Present normal rate and rhythm; Absent JVD GI/Abdominal GI/Abdominal exam: Present normal bowel sounds and soft; Absent organomegaly or tenderness Extremities Exam Extremities exam: Present full ROM, normal capillary refill and normal inspection; Absent tenderness Neurological Exam Neurological exam: Present alert, CN II-XII intact and oriented X3; Absent motor sensory deficit Psychiatric Psychiatric exam: Present normal affect and normal mood; Absent anxious or depressed Skin Skin exam: Present dry and intact Discharge Data Data Completed and Pending Labs on day of discharge: Labs from last 24 hours 02/11/21 02/11/21 05:39 05:39 WBC 10.7 RBC 4.14 Hgb 8.9 L Hct 29.2 L MCV 70.5 L MCH 21.5 L MCHC 30.5 L RDW 28.7 H Plt Count 183 MPV Neut % (Auto) 77.7 Lymph % (Auto) 14.5 L [place] % (Auto) 7.5 Eos % (Auto) 0.1 Baso % (Auto) 0.2 Lymph # (Auto) 1.55 [place] # (Auto) 0.80 Eos # (Auto) 0.01 Baso # (Auto) 0.02 Absolute Neutrophils 8.33 H Sodium 135 Potassium 3.4 Chloride 101 Carbon Dioxide 20 L Anion Gap 14.0 BUN 18 Creatinine 0.7 GFR Calculation 93 Glucose 136 H Calcium 8.9 Magnesium 1.9 Total Bilirubin 0.4 AST 31 ALT 34 Alkaline Phosphatase 100 Total Protein 5.9 Albumin 2.9 L Globulin 3.0 Albumin/Globulin Ratio 1.0 Preliminary micro results at discharge 02/10/21 05:40 Blood Culture - Preliminary Blood 02/10/21 05:32 Blood Culture - Preliminary Blood 02/07/21 13:47 Blood Culture - Preliminary Blood 02/07/21 13:39 Blood Culture - Preliminary Blood Coagulase negative staph Discharge Plan Patient/Caregiver Discharge Instructions Activity: increase activity as tolerated Diet: Consistent Carbohydrate Prescriptions: New dextromethorphan-guaifenesin [Robafen DM Cough] 10-100 mg/5 mL Liquid 10 ml PO Q4HP PRN (Reason: Cough) Qty: 500 0RF ferrous sulfate 325 mg (65 mg iron) Tablet 325 mg PO BIDCC Qty: 30 0RF Continued Lantus U-100 Insulin 100 unit/mL Solution 20 unit SUBCUT QDAY 0RF metformin 1,000 mg Tablet 1,000 mg PO BID 0RF lisinopril 30 mg Tablet 30 mg PO QDAY 0RF Follow Up Plan Follow up with: PCP,PCP [Other] (f/u with PCP in 2 weeks) Patient Disposition: Home, Self-Care Prognosis: Fair Rehab Potential: Good I certify that the patient requires SNF services: No Overall status at discharge: patient is progressing back to baseline Discharge Orders: Discharge Order (Routine); Ordered 02/11/21 Ordered By: Norman BAHENA VTE Deep Vein Thrombosis/Pulmonary Embolism Present on Admission: No
== END 2021-02-11 14:15 | disposition home or self-care (01) | DRG 177 ==
LOC: ED 12:38 → MEDSUR 18:04
PROVIDERS: ADMIT Internal Medicine; ATTEND Internal Medicine